=== PATIENT | male | born 1935 | race Caucasian/White ===

== ENCOUNTER 2016-09-02 06:26 | Outpatient (CLI) | payer MEDICARE, OTHER ==
[~2016-09-02] VITALS: Ht 182.9 cm; Wt 105.3 kg
--- NOTE | ~2016-09-02 | CATH ---
Cardiac Diagnostic + PCI Report Demographics Patient Name KATHYA Cisneros Gender Male Date of 1935 Age 81 year(s) Patient Number [id number] Date of Study 09/02/2016 Visit Number [id number] Room Number G63[address] [place] [id number] Ht 182.88 cm Wt 105.3 kg Referring Kyle Cassidy Primary Physician Physician MARGY Performing Octavio Benavidez MD Secondary Physician Physician Diagnostic Octavio Benavidez MD Assisting Physician Physician Interventional Octavio Benavidez MD Physician Heating Element Builder Physician Findings and Conclusions Diagnostic Findings and Conclusion 3 vessel CAD 3 of 4 grafts patent Diagnostic Recommendations PCI of unga LCX Interventional Findings and Conclusion Successful PCI of the mid Circumflex coronary artery using a 0.014 Prowater, 2.25 X 15 Emerge, and 2.5 X 16 Promus Drug Eluting stent inflated to 2.7 with no residual stenosis. Interventional Recommendations DAPT X 1 year Routine post perclose Procedure Description The patient was brought to the diagnostic cardiac catheterization-EP laboratory in the fasting, non-sedated state. Informed consent was obtained in the written and verbal form after the risks and benefits were explained. The patient had no further questions and agreed to proceed. The planned puncture-incision site(s) were shaved and prepped with ChloraPrep and draped in the usual sterile manner. Conscious sedation, supplemental oxygen, and pain control medications were delivered by a registered nurse under physician guidance. Surface ECG rhythm, blood pressure measurement, and pulse oximetry were monitored throughout the procedure. Arterial access. The access site was infiltrated with lidocaine. The vessel was entered with the Seldinger technique. A sheath was advanced into the vessel and used for catheter placement. Selective left coronary angiography. A catheter was advanced into the left coronary vessel ostium under Fluoroscopic guidance. Contrast was injected by hand. Images were obtained in multiple projections. Selective right coronary angiography. A catheter was advanced into the right coronary vessel ostium under fluoroscopic guidance. Contrast was injected by hand. Images were obtained in multiple projections. Selective SVG angiography (OM, Diag, PDA). A catheter was advanced into the graft proximal anastomosis under fluoroscopic guidance. Contrast was injected by hand. Images were obtained in multiple projections. Selective LENNON graft angiography. A catheter was advanced into the left internal mammary graft ostium under fluoroscopic guidance. Contrast was injected by hand. Images were obtained in multiple projections. Left heart catheterization. A catheter was advanced across the aortic valve to the left ventricle under fluoroscopic guidance. Resting hemodynamics were obtained. Arterial artery hemostasis was achieved. The patient was transferred to a regular nursing floor via cart accompanied by a nurse. The patient left the laboratory in stable condition. Diagnostic Cath Status: Elective Interventional Cath Status: Elective Procedure Procedure Type PCI procedure:Drug Eluting Coronary Stent:, CFX Indications: Shortness of breath and Positive Nuclear: Intermediate. The procedure was explained in detail to the patient. Risks, complications and alternative treatments were reviewed. Written consent was obtained. Medications Reviewed with Patient prior to Procedure. Angiographic Findings Dominance: Mixed Cardiac Arteries and Lesion Findings LMCA: Normal (0% Stenosis).Medium caliber LAD: Medium calibler, competitive flow distally. Diag 1 is small and okay Lesion on Mid LAD: Mid subsection.70% stenosis . LCx: Medium caliber. OM 1 is small and okay, OM 2 is small with diffuse disease Lesion on Mid CX: Distal subsection.99% stenosis 16 mm length reduced to 0%. Pre procedure AMBROSIO II flow was noted. Post Procedure AMBROSIO III flow was present. The guidewire cross was successful.The lesion was diagnosed as a moderate risk lesion.Culprit lesion. Devices used - Prowater Wire .014 x 180. Number of passes: 1. - Emerge Balloon 2.25 x 15. 2 inflation(s) to a max pressure of: 12 satya. - Promus Premier 2.5 x 16 Stent. 2 inflation(s) to a max pressure of: 15 satya. Lesion on 1st Ob Evonne: Proximal subsection.70% stenosis . RCA: Medium caliber Lesion on Mid RCA: Mid subsection.100% stenosis . Graft Lesions Lesion on Aorta Left to Mid CX: Proximal anastomosis.100% stenosis .Chronic total occlusion. Cardiac Grafts - There is a Vein graft that originates at the Aorta Right and attaches to the Dist RCA (Large, good unga flow, PDA/PL normal). - There is a Vein graft that originates at the Aorta Left and attaches to the Mid CX (Occluded). - There is a Vein graft that originates at the Aorta Left and attaches to the 1st Diag (Patent, normal). - There is a LENNON graft that originates at the LENNON and attaches to the Dist LAD (Medium caliber and normal. [place] vessel is small and okay). Coronary Tree Procedure Data Procedure Date Date: 09/02/2016Start: 09:35 AMEnd: 10:24 AM Entry Locations - Retrograde Percutaneous access was performed through the Right Femoral artery (Primary location). A 6 Fr sheath was inserted. Hemostasis was successfully obtained using Perclose ProGlide (Mg). Closure Comments: Deployed by Paxton MCCONNELL(Jesus). Procedure Medications Order and Administration + + + + + !Time !Medication !Dosage !Route ! + + + + + 09/02/2016 09:29 !Versed !1 mg !I.V. ! !AM ! ! ! ! + + + + 09/02/2016 09:32 !Fentanyl !50 mcg !I.V. ! !AM ! ! ! ! + + + + 09/02/2016 09:34 !Oxygen !2 l/min !NC ! !AM ! ! ! ! + + + + + !09/02/2016 09:52 !Angiomax (Bivalirudin) !80 mg !I.V. bolus ! !AM !(ACC_5) ! ! ! + + + + + !09/02/2016 09:53 !Angiomax (Bivalirudin) !1.75 mg/kg/hr!I.V. drip ! !AM !(ACC_5) ! ! ! + + + + + !09/02/2016 09:55 !Nipride !50 mcg !I.C. ! !AM ! ! ! ! + + + + + !09/02/2016 10:04 !Nipride !75 mcg !I.C. ! !AM ! ! ! ! + + + + + !09/02/2016 10:07 !Nipride !60 mcg !I.C. ! !AM ! ! ! ! + + + + + !09/02/2016 10:08 !Angiomax (Bivalirudin) ! !I.V. drip ! !AM !(ACC_5) ! ! ! + + + + + !09/02/2016 10:11 !Brilinta (Ticagrelor) !180 mg !P.O. ! !AM !(ACC_20) ! ! ! + + + + + !09/02/2016 10:13 !0.45% NaCl !75 ml/hr !I.V. drip ! !AM ! ! ! ! + + + + + !09/02/2016 10:13 !0.9% NaCl ! !I.V. drip ! !AM ! ! ! ! + + + + + Devices Used - A6 Fr. BS JL 4 Diag. Catheterwas used for:Left coronary angiography. - A6 Fr. BS JR 4 Diag. Catheterwas used for:Right coronary angiography. Comments: SVG-OM, SVG-Diag, SVG-PDA. - A6 Fr. BS IMT Diag. Catheterwas used for:LENNON. - A6 Fr. BS Angled Pigtail Diag. Catheterwas used for:LV Pressures. - A6 Fr. XB 3.5 Guide Catheterwas used for:Circumflex Intervention. Contrast Material - Isovue [id number] ml Fluoroscopy Time: Diagnostic: 13:36 minutes. Total: 13:36 minutes. Fluoroscopy Dose: Diagnostic: 2271 mGy. Total: 2271 mGy. Estimated Blood Loss: 5 ml. Additional [facility] PCI Information PCI Indication:PCI for high risk Non-STEMI or unstable angina. Medical History Performed Procedures and Imaging Results - Stress testing with SPECT MPIwas performed. Results were: Positive. Risk/Extent of ischemia was: Intermediate risk. Allergies - No known allergies. 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 Admission Data Admission Date: 09/02/2016 Admission Time: 06:26 AM Admit Source: Other Insurance Payors: Medicare. Admission Medications + +------+-------+ + + + + !Medication!Dosage!Times !Last !Last !Administered !Comments ! ! ! !Per Day!Delivery !Delivery ! ! ! ! ! ! !Date !Time ! ! ! + +------+-------+ + + + + !Statin ! ! ! ! !Yes ! ! !(any) ! ! ! ! ! ! ! + +------+-------+ + + + + Clinical Evaluation Leading to Procedure - The patient's CAD presentation was assessed as: Unstable angina. - The patient's anginal syndrome during the past two weeks was assessed as: Class III according to the [place] Cardiovascular Society Classification System (CCS). Anti-anginal medications were prescribed during the past two weeks. The medication is: Ca channel Blockers. [facility] . Ejection Fraction - 08/13/2016 - Method: Radionucleotide. EF%: 53. - 08/01/2016 - Method: Echocardiography. EF%: 45. Hemodynamics Condition: Rest O2 Consumption: Estimated: 276.06Heart Rate: 89 bpm Pressures (mmHg) +-----+ + !Site !Pressure ! +-----+ + !AO !165/101 (123) ! +-----+ + !LV !151/3 ,19 ! +-----+ + !LV !158/4 ,22 ! +-----+ + !AO !157/62 (102) ! +-----+ + !LV !153/5 ,19 ! +-----+ + Valve Gradients and Areas + +---------+---------+---------+ +---------+ + !Valve !Peak !Mean !Area !Index !Flow !Source ! + +---------+---------+---------+ +---------+ + !Aortic !0 !0 ! ! ! ! ! + +---------+---------+---------+ +---------+ + !Aortic !0 !0 ! ! ! ! ! + +---------+---------+---------+ +---------+ + Shunts Oxygen Values O2 Capacity 201.28 O2 Consumption 276.06 Discharge Data Discharge Date: 09/03/2016 Hospital Status: Outpatient Signatures dtt: Pramod Cunningham (cardio) dtd: 09/02/16 0935 Physician Self Edit
[~2016-09-02 06:26] MED LIST: AMARYL4 MG PO; GLUCOPHAGE1000 MG PO; LEVEMIR FL100 UNIT/1 SUB-Q; LOSARTAN-HCTZ1 EAC1 PO; NORVASC2.5 MG PO; POTASSIUM CHLO20 ME1 PO; VICTOZA 2-0.6 MG/0.1 SUB-Q; ZOCOR20 MG PO
[2016-09-03 03:57] LABS: BASOPHIL % 0.5 %; EOSINOPHIL # 0.3 K/uL (0.0-0.5); EOSINOPHIL % 3.3 %; HEMATOCRIT 40.4 % (37.0-53.0); HEMOGLOBIN 13.1 g/dL (11.0-16.0); IMMATURE GRANULOCYTE % 0.4 %; LYMPHOCYTE # 1.7 K/uL (0.8-4.0); LYMPHOCYTE % 22.1 %; MCH 29.4 pg (27.0-34.0); MCHC 32.4 gm/dL (32.0-36.5); MCV 90.8 fl (83.0-98.0); MONOCYTE # 0.6 K/uL (0.0-1.0); MONOCYTE % 8.4 %; MPV 10.4 fl (9.4-12.4); NEUTROPHIL # (ANC) 4.9 K/uL (1.4-9.0); NEUTROPHIL % 65.3 %; NRBC % 0 /100WBC (0-0.00); PLATELET COUNT 187 K/uL (150-450); RBC 4.45 M/uL (3.50-5.50); WBC 7.5 K/uL (4.0-11.0)
[2016-09-03 04:14] LABS: ANION GAP 11.7 (10.0-19.0); CALCIUM 8.6 mg/dL (8.5-10.5); CREATININE 0.8 mg/dL (0.6-1.3); POTASSIUM 3.7 mMol/L (3.7-5.1); TOTAL BILIRUBIN 0.9 mg/dL (0.0-1.5); TOTAL PROTEIN 6.2 g/dL (6.0-8.4)
[2016-09-03] MEDS ORDERED: ASPIRIN EC81 MG PO (10:20)
[2016-09-03] MEDS ORDERED: BRILINTA90 MG PO (10:21)
[2016-09-03] MEDS ORDERED: TYLENOL325 MG PO (10:22)
[2016-09-03] MEDS ORDERED: BENADRYL25 MG PO (10:24)
== END 2016-09-03 10:55 | disposition disaster alternative care site (69) ==
LOC: GCAT 06:26 → GPCU 06:26 → GCAT 07:00 → GPCU 12:56 → GCAT 14:00
PROVIDERS: Internal Medicine Interventional Cardiology
PROC: 4A023N7 Measurement of Cardiac Sampling and Pressure, Left Heart, Percutaneous Approach (ICD-10-PCS; principal; 2016-09-02)
PROC: B216YZZ Fluoroscopy of Right and Left Heart using Other Contrast (ICD-10-PCS; 2016-09-02)
DX: I25.110 Atherosclerotic heart disease of native coronary artery with unstable angina pectoris (principal); I49.9 Cardiac arrhythmia, unspecified; I49.3 Ventricular premature depolarization; I10 Essential (primary) hypertension; E11.9 Type 2 diabetes mellitus without complications; E78.5 Hyperlipidemia, unspecified; R06.02 Shortness of breath; Z95.1 Presence of aortocoronary bypass graft
CPT/HCPCS: C1725; C1760; C1769; C1874; C1887; C9600; J0583; J1644; J2001; J2250; J3010; J7030; J7060